=== PATIENT | male | born 1975 | race Hispanic/Latino ===

== ENCOUNTER 2017-07-21 12:10 | Emergency (ER) | payer OTHER ==
[2017-07-21] MEDS ORDERED: KETOROLAC TROMETHAMINE 30MG/ML ONE (12:23)
== END 2017-07-21 13:08 | disposition home or self-care (01) ==
LOC: EDH 12:10
DX: M25.462 Effusion, left knee (principal); M25.562 Pain in left knee
CPT/HCPCS: 73562; 96372; 99284; J1885